=== PATIENT | female | born 1975 | race Caucasian/White ===

== ENCOUNTER → 2021-03-18 | Outpatient (CLI) | payer OTHER ==
[~2021-03-18] MED LIST: ALBU90OI INH; Abilify5 MG; BUSP5 PO; CLARITIN-D 121 EACH PO; DOCU100 PO; IBUP800 PO; MELO7.5 PO; OXYACE5T PO; Prozac20 MG; RANI150 PO; SULTRIDS PO; TRAZ50; Verotin-Gr Cap1 EACH PO
[2021-03-22 15:09] LABS: HPV 16 Negative (Negative); HPV 18 Negative (Negative); HPV OTHER HR TYPES Negative (Negative)
== END | disposition home or self-care (01) ==
LOC: LAB SHORT 18:48 → LAB 18:48
PROVIDERS: Family Medicine
DX: Z01.419 Encounter for gynecological examination (general) (routine) without abnormal findings (principal)
CPT/HCPCS: 87624; G0123

== ENCOUNTER → 2022-10-03 | Outpatient (CLI) | payer OTHER, BC ==
[2022-10-03 16:30] LABS: Hematocrit 41.2 % (33.0-51.0); Hemoglobin 14.2 g/dL (11.5-16.0); Mean Corpuscular HGB 32.3 pg (26.0-34.0); Mean Corpuscular HGB Conc 34.5 g/dL (31.5-36.5); Mean Corpuscular Volume 94 fL (80-100); Mean Platelet Volume 10.4 fL (9.1-12.4); Platelet Count 287 K/mm3 (150-400); RDW Coefficient Variation 12.9 % (11.7-14.2); RDW Standard Deviation 44.7 fL (35.1-46.3); White Blood Cell Count 7.58 K/mm3 (4.00-11.30)
== END | disposition home or self-care (01) ==
LOC: LAB SHORT 07:40
PROVIDERS: Physician Assistant
DX: N95.8 Other specified menopausal and perimenopausal disorders (principal); E27.49 Other adrenocortical insufficiency; E53.8 Deficiency of other specified B group vitamins; E66.3 Overweight; Z79.890 Hormone replacement therapy
CPT/HCPCS: 83036; 85027

== ENCOUNTER 2023-09-12 17:01 | Emergency (ER) | payer OTHER, BC ==
[~2023-09-12] VITALS: Ht 157.5 cm; Wt 65.8 kg
[2023-09-12 17:13] VITALS: BP 131/84
[2023-09-12] MEDS ORDERED: CYCL10 PO (17:28)
== END 2023-09-12 17:58 | disposition home or self-care (01) ==
LOC: ER 17:01
DX: S13.4XXA Sprain of ligaments of cervical spine, initial encounter (principal); Z96.7 Presence of other bone and tendon implants; Z88.5 Allergy status to narcotic agent; Z79.899 Other long term (current) drug therapy; V89.2XXA Person injured in unspecified motor-vehicle accident, traffic, initial encounter
CPT/HCPCS: 72040; 99284-25

== ENCOUNTER → 2024-10-02 | Outpatient (CLI) | payer BC ==
[~2024-10-02] MED LIST changes: +CYCL10 PO
== END ==
LOC: LAB 17:09 → LAB SHORT 17:09
DX: E27.49 Other adrenocortical insufficiency (principal); M25.552 Pain in left hip; R53.83 Other fatigue; R55 Syncope and collapse; Z76.89 Persons encountering health services in other specified circumstances
CPT/HCPCS: 85651

== ENCOUNTER → 2025-06-25 | Outpatient (CLI) | payer BC | END | disposition home or self-care (01) | LOC: LAB 19:45 → LAB SHORT 19:45 | DX: R30.0 Dysuria (principal) | CPT/HCPCS: 87086 ==